=== PATIENT | male | born 1975 | race Asian ===

== ENCOUNTER 2019-11-27 20:20 | Emergency (ER) | payer OTHER ==
[~2019-11-27] VITALS: Ht 170.2 cm; Wt 79.4 kg
[2019-11-27 20:30] VITALS: BP_SYST 138
--- NOTE | 2019-11-27 20:30 | NUR ---
Patient to ER [facility] for evaluation. Pt is in custody
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
--- NOTE | 2019-11-27 20:55 | NUR ---
ER at bedside examining patient.
--- NOTE | 2019-11-27 21:30 | NUR ---
Pt resting in chair, no distress.
[2019-11-27 21:52] VITALS: BP_SYST 131
--- NOTE | 2019-11-27 21:52 | NUR ---
Patient given written and verbal discharge instructions and verbalizes understanding. ER MD discussed with patient the results and treatment provided. Patient in stable condition. ID arm band removed. No IV No RX given. Patient educated on pain management and to follow up with PMD. Pain Scale 0/10. Opportunity for questions provided and answered.
== END 2019-11-27 21:52 ==
LOC: SED 20:20
DX: Z02.89 Encounter for other administrative examinations (principal)
CPT/HCPCS: 99283